=== PATIENT | male | born 1960 | race Caucasian/White ===

== ENCOUNTER 2019-03-29 09:55 | Outpatient (RCR) | payer OTHER, SELFPAY ==
--- NOTE | 2019-03-29 10:39 | PTOPEVAL ---
Thank you for referring this patient to [facility]. Please review, sign, date and return this plan of care SHAYAN. I agree with and certify that the following plan of care is medically necessary. Referring Physician Date Admitting Provider: Attending Provider: Ramon Duarte, Referring Provider: *PT Outpatient Evaluation Start: 03/29/19 10:15 Freq: Status: Active Protocol: Document 03/29/19 10:15 [facility] (Rec: 03/29/19 10:38 [facility] [id number]) Therapy Assessment Status Assessment Status Assessment Status Evaluation Evaluation Information Problem Diagnosis L hip, ischial bursitis Onset 03/25/19 Subjective Information patient reports he has been Query Text:As Reported By Patient/ having pain in the L hip for Family about 3-4 weeks. he reports the pain will reach an 8/10 at times. he reports sitting for increased time causes increased symptoms. he reports the pain is located underneath his L buttock related to where his wallet sits. he reports it feels like a pressure. he reports he does not work. he reports some symptoms down the leg at time . he report this will redaiate to the L knee only. Prior Level of Function Comments Additional Prior Level of Function priro to a month ago, no Comments issues with the L LE or buttock/hip. Pain Assessment Timing of Pain Assessment Timing of Pain Assessment Assessment Pain Scale Pain Scale Used Numeric (1 - 10) Self Report Pain Assessment Left Buttock(s) Reported Pain Level 5 Pain Description Burning,Pressure,Tightness Pain Frequency Acute,Continuous Current Pain Intensity 5 Lowest Pain Intensity 2 Greatest Pain Intensity 8 Pain Level Goal 0 Pain Aggravating Factors Prolonged Position,Sitting Pain Score Pain Score 5: Self Report Cervical and Lumbar ROM Lumbar ROM Lumbar Flexion Active Mid [place] Query Text:Hands to: Lumbar Extension (0-40) 30 Query Text:Active in Degrees Lumbar Lateral Flexion Right (0-40) 30 Query Text:Active in Degrees Lumbar Lateral Flexion Left (0-40) 30 Query Text:Active in Degrees Cervical and Lumbar Muscle Testing Lumbar Strength Upper Abdominal Strength 2+Poor+ Lower Abdomina
--- NOTE | 2019-04-09 16:04 | PCPTNOTE ---
04/09/19-pt cancelled apt this date.-HM
== END 2019-04-05 17:00 | disposition home or self-care (01) ==
LOC: CHSPT 09:55
PROVIDERS: PCP Family Medicine; Visit Provider Family Medicine
DX: M70.72 Other bursitis of hip, left hip (principal)
CPT/HCPCS: 97014; 97110; 97161; G0283

== ENCOUNTER 2020-05-25 17:29 | Emergency (ER) | payer OTHER, SELFPAY ==
--- NOTE | ~2020-05-25 | XR_ITS ---
EXAMINATION: XR forearm RT 2V INDICATION: Right forearm pain TECHNIQUE: Two views of the right forearm are obtained. COMPARISON: None available FINDINGS: There is cortical irregularity in the shafts of the proximal radius and ulna. A scalloped l ucency is present in the proximal radial shaft with a sclerotic margin. There appears to be overlying heterotopic bone formation. Mildly elevated cortex is seen in the adjacent ulnar shaft. No fracture is identified. There is no joint effusion. Alignment at the elbow and wrist is normal. IMPRESSION: 1. Cortical irregularity in the shafts of the proximal radius and ulna. Recommend correlation for any surgery at this site. If absent, further evaluation with CT may be beneficial to evaluate for underl gregoria osseous lesion. Reviewed, dictated and finalized at location A. IMPRESSION: 1. Cortical irregularity in the shafts of the proximal radius and ulna. Recomme nd correlation for any surgery at this site. If absent, further evaluation with CT may be beneficial to evaluate for underlying osseous lesion.
[2020-05-25 17:49] VITALS: BP 128/82; PULSE 75; RESP 20; TEMP 36.2; O2SAT 100
[2020-05-25] MEDS: KETOROLAC (*BKC) 60 MG/2 ML VIAL IM (18:00)
--- NOTE | 2020-05-25 18:16 | ED.UPPEXIN ---
HPI - Extremity Injury (Upper) General Chief Complaint: Extremity Injury, Upper Stated Complaint: right arm pain Source: patient Mode of arrival: ambulatory Limitations: no limitations History of Present Illness HPI narrative: this is 59-year-old gentleman that presents with some right forearm pain mid forearm with no known injury there is no bruising no swelling has pain and tenderness with some pronation and supination of his right forearm has a good strong radial pulse on the on the right has a history of a tendon surgery on the elbow otherwise known injuries has good range of motion although tender and painful. Rates his pain about a 9/10 has taken [id number] medication with minimal relief. complaint: injury to: right Other Extremity Injury: Right: shoulder ( pain without injury) Handedness: right Severity: severe Severity scale (1-10): 9 Relieving factors: immobilization Exacerbating factors: movement of extremity Related Data Allergies Allergy/AdvReac Type Severity Reaction Status Date / Time No Known Allergies Allergy Mild Verified 04/22/19 09:45 Review of Systems Review of Systems: All systems reviewed & are unremarkable except as noted in HPI and below PMFSH Past Medical History Medical History Tendinopathy of right elbow Family History Family History Father Hypertension Family history of elevated blood lipids Family history of diabetes mellitus in first degree relative Family history of lung cancer Family history of malignant neoplasm of kidney Grandparent Family history of throat cancer Other Diabetes mellitus Social History Social History Alcohol intake: never Gender identity (if verbalized by the patient): Male Exam Const: General: no acute distress Orientation/consciousness: patient oriented x3 HENMT: Head: normal to inspection and contusion Eyes: Conjunctivae: conjunctivae normal Pupils: Equal, round and reactive pupils present EOM: EOMs intact bilaterally Direct Ophthalmoscopy: no photophobia Neck: Neck: normal visual inspection, no lymphadenopathy and no meningeal signs Chest: Chest palpation & inspection: normal inspection of the chest Resp: Effort & Inspection: normal respiratory effort Auscultation: clear to auscultation bilaterally Cardio: Rate: regular rate Rhythm: regular rhythm GI: GI Palp: Yes Soft to palpation Percussion: Yes normal to percussion Back/Spine/Pelvis: Back: no CVA tenderness Skin: General skin exam: normal color Rashes: no rashes Neuro: General: patient oriented x3 and moves all extremities Extrem: Other: tender right mid forearm with palpation and movement with no bruising or swelling Psych: Appearance: grossly normal Mental Status: mental status grossly normal Affect: normal affect Thought content: Yes Normal thought content present Course Course Emergency Course: reviewed x-ray findings with patient patient has had a history of surgery on his right elbow and and forearm with correlates with the x-ray findings, advised patient to take medicine as prescribed as improved with some Toradol and follow-up with primary care physician. Vital Signs Vital signs: Vital Signs Temperature 36.2 C L 05/25/20 17:49 Pulse Rate 75 05/25/20 17:49 Respiratory Rate 20 05/25/20 17:49 Blood Pressure 128/82 05/25/20 17:49 Pulse Oximetry 100 05/25/20 17:49 Temperature 36.2 C L 05/25/20 17:49 Pulse Rate 75 05/25/20 17:49 Respiratory Rate 20 05/25/20 17:49 Blood Pressure 128/82 05/25/20 17:49 Pulse Oximetry 100 05/25/20 17:49 Critical Care Time Critical Care Time Critical Care Time: No Discharge Plan Discharge Clinical Impression: Forearm deformity Qualifiers: Laterality: right Qualified Code(s): M21.931 - Unspecified acquired deform
[2020-05-25 18:41] VITALS: BP 120/79; PULSE 74; RESP 20; O2SAT 96
== END 2020-05-25 18:43 | disposition home or self-care (01) ==
PROVIDERS: Emergency Provider Emergency Medicine; PCP Family Medicine
DX: M21.931 Unspecified acquired deformity of right forearm (principal)
CPT/HCPCS: 73090; 96372; 99283; J1885

== ENCOUNTER 2020-06-10 07:37 | Outpatient (CLI) | payer OTHER, SELFPAY ==
--- NOTE | ~2020-06-10 | MR_ITS ---
EXAMINATION: MR forearm RT wo con DATE: 06/10/2020 08:32 INDICATION: Right forearm pain. TECHNIQUE: Magnetic resonance imaging (MRI) of the right forearm was performed without intravenous co ntrast. Sequences included coronal, axial, and sagittal PD-weighted FS FSE and coronal, axial, and sa gittal PD-weighted FSE. COMPARISON: Right forearm radiograph 05/25/2020 FINDINGS: Osseous/other: Bone alignment is normal. No fracture. The elbow joint cartilage is normal. Tendons: There is mild common flexor tendinopathy at medial humeral epicondyle. There is severe common extenso r tendinopathy and partial tear at lateral humeral epicondyle. Brachialis tendon is normal. There are surgical changes at the biceps tendon attachment to proximal radius with enthesophytes. There is sev ere tendinopathy and partial tear of biceps tendon at the radial attachment. Ligaments: There are changes of prior sprain of radial collateral ligament characterized by increased signal int ensity with indistinct fibers. Lateral ulnar collateral ligament is likely intact. Ulnar collateral l igament is normal. Cubital tunnel: Ulnar nerve is normal. Fluid: There is no elbow joint effusion. IMPRESSION: 1. Severe tendinopathy and partial tear of biceps tendon at its attachment to proximal radius with reyes rgical changes. 2. Severe common extensor tendinopathy and partial tear at lateral humeral epicondyle. Changes of matt or sprain of radial collateral ligament at the elbow. 3. Mild common flexor tendinopathy at medial humeral epicondyle. Reviewed, dictated and finalized at location A. IMPRESSION: 1. Severe tendinopathy and partial tear of biceps tendon at its attachment to p roximal radius with surgical changes. 2. Severe common extensor tendinopathy and partial tear at lateral humeral epic ondyle. Changes of prior sprain of radial collateral ligament at the elbow. 3. Mild common flexor tendinopathy at medial humeral epicondyle.
== END 2020-06-10 07:38 | disposition home or self-care (01) ==
LOC: CHSIMG 07:39
PROVIDERS: PCP Family Medicine; Visit Provider Nurse Practitioner Psychiatric/Mental Health
DX: M79.631 Pain in right forearm (principal)
CPT/HCPCS: 73218

== ENCOUNTER 2020-10-30 10:39 | Outpatient (CLI) | payer OTHER, SELFPAY ==
[2020-10-30 11:16] LABS: SARS-CoV-2 Ag Negative (Negative)
== END 2020-10-30 10:40 | disposition home or self-care (01) ==
LOC: CHSLAB 10:43
PROVIDERS: PCP Family Medicine; Visit Provider Physician Assistant
DX: J02.9 Acute pharyngitis, unspecified (principal); Z20.822 Contact with and (suspected) exposure to COVID-19
CPT/HCPCS: 87426; C9803

== ENCOUNTER 2020-12-15 10:54 | Outpatient (CLI) | payer OTHER, SELFPAY ==
[2020-12-15 12:06] LABS: SARS-CoV-2 Ag Negative (Negative)
[2020-12-15 12:57] LABS: SARS-CoV-2 RNA PCR Negative (Negative)
== END 2020-12-15 10:55 | disposition home or self-care (01) ==
LOC: CHSLAB 10:57
PROVIDERS: PCP Family Medicine; Visit Provider Family Medicine
DX: Z20.822 Contact with and (suspected) exposure to COVID-19 (principal)
CPT/HCPCS: 87426; C9803; U0003; U0005

== ENCOUNTER 2021-02-06 14:44 | Outpatient (RCR) | payer OTHER, SELFPAY ==
--- NOTE | 2021-02-06 16:00 | PTOPEVAL ---
Thank you for referring Barry Angeles to [facility].? The patient is scheduled to be seen for therapy? ____x/week for ___ weeks. Please review, sign, date and return this plan of care SHAYAN. I agree with and certify that the following plan of care is medically necessary. Referring Physician Date Admitting Provider: Attending Provider: Ramon Duarte, MD Referring Provider: *PT Outpatient Evaluation Start: 02/06/21 15:12 Freq: Status: Active Protocol: Document 02/06/21 15:12 [facility] (Rec: 02/06/21 15:59 [facility] [id number]) Therapy Assessment Status Assessment Status Assessment Status Evaluation Outpatient Past Medical History Cardiovascular History Hx Hypercholesterolemia Yes Hx Hypertension Yes Gastrointestinal History Hx Cholecystectomy Yes Endocrine History Hx Diabetes Yes Evaluation Information Problem Diagnosis lumbar radiculopathy Onset 01/26/21 Additional Evaluation Detail LEFS = 70% functionally declined Subjective Information patient reports he has kimberlyn Query Text:As Reported By Patient/ having increased back and R Family greater than L LE pain. he reports no change in activity. 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 he reports he has increased pain with lifting and carrying activities. he reports he also has increased pain in the back trying to get up and get going after sitting for a long time. he reports he has pain down the backside of the leg and into the calf. Prior Level of Function Comments Additional Prior Level of Function prior to a few weeks ago, no Comments issues with the lower back of LE's. he reports occasional soreness in the back but nothing like it has been lately. Pain Assessment Timing of Pain Assessment Timing of Pain Assessment Assessment Pain Scale Pain Scale Used Numeric (1 - 10) Self Report Pain Assessment Lower Back Reported Pain Level 9 Greatest Pain Intensity 10 Pain Score Pain Score 9: Self Report Interventions Used Interventions Used By Clinicians Activity or ADL's,Heat,Rest Cervical and Lumbar ROM Lumbar RO
--- NOTE | 2021-02-15 15:02 | PTOPEVAL ---
Thank you for referring Barry Angeles to [facility].? The patient is scheduled to be seen for therapy? ____x/week for ___ weeks. Please review, sign, date and return this plan of care SHAYAN. I agree with and certify that the following plan of care is medically necessary. Referring Physician Date Admitting Provider: Attending Provider: Ramon Duarte, MD Referring Provider: *PT Outpatient Evaluation Start: 02/06/21 15:12 Freq: Status: Active Protocol: Document 02/06/21 15:12 [facility] (Rec: 02/06/21 15:59 [facility] [id number]) Therapy Assessment Status Assessment Status Assessment Status Evaluation Outpatient Past Medical History Cardiovascular History Hx Hypercholesterolemia Yes Hx Hypertension Yes Gastrointestinal History Hx Cholecystectomy Yes Endocrine History Hx Diabetes Yes Evaluation Information Problem Diagnosis lumbar radiculopathy Onset 01/26/21 Additional Evaluation Detail LEFS = 70% functionally declined Subjective Information patient reports he has kimberlyn Query Text:As Reported By Patient/ having increased back and R Family greater than L LE pain. he reports no change in activity. 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 he reports he has increased pain with lifting and carrying activities. he reports he also has increased pain in the back trying to get up and get going after sitting for a long time. he reports he has pain down the backside of the leg and into the calf. Prior Level of Function Comments Additional Prior Level of Function prior to a few weeks ago, no Comments issues with the lower back of LE's. he reports occasional soreness in the back but nothing like it has been lately. Pain Assessment Timing of Pain Assessment Timing of Pain Assessment Assessment Pain Scale Pain Scale Used Numeric (1 - 10) Self Report Pain Assessment Lower Back Reported Pain Level 9 Greatest Pain Intensity 10 Pain Score Pain Score 9: Self Report Interventions Used Interventions Used By Clinicians Activity or ADL's,Heat,Rest Cervical and Lumbar ROM Lumbar RO
== END 2021-03-12 23:59 | disposition home or self-care (01) ==
LOC: CHSPT 14:44
PROVIDERS: PCP Family Medicine; Visit Provider Family Medicine
DX: M54.10 Radiculopathy, site unspecified (principal)
CPT/HCPCS: 97014; 97110; 97161; G0283

== ENCOUNTER 2021-03-12 13:01 | Outpatient (CLI) | payer OTHER, SELFPAY ==
--- NOTE | ~2021-03-12 | XR_ITS ---
XR lumbar spine 2-3V DATE: 03/12/2021 13:22 INDICATION: Bilateral radicular pain involving lower extremities TECHNIQUE: AP, lateral, coned lateral lumbosacral views of the lumbar spine COMPARISON: None FINDINGS: There is minimal levoscoliosis of the thoracolumbar spine. There is mild degenerative spurring of the lumbar spine. There is mild loss of interspace height at L3-4. Lumbar and lumbosacral interspaces otherwise are rel atively preserved. No fracture, bone destruction or spondylolisthesis. The lumbar and included T11 and T12 pedicles are intact. The sacroiliac joints are normal. IMPRESSION: Minimal levoscoliosis and mild degenerative change Reviewed, dictated and finalized at location A. FOREMAN
== END 2021-03-12 13:02 | disposition home or self-care (01) ==
LOC: CHSIMG 13:03
PROVIDERS: PCP Family Medicine; Visit Provider Family Medicine
DX: M54.10 Radiculopathy, site unspecified (principal)
CPT/HCPCS: 72100

== ENCOUNTER 2021-10-10 05:13 | Emergency (ER) | payer OTHER, SELFPAY ==
--- NOTE | ~2021-10-10 | XR_ITS ---
EXAMINATION: XR hip LT min 2V DATE: 10/10/2021 06:13 INDICATION: Left hip pain. TECHNIQUE: 2 views of left hip were obtained. COMPARISON: None. FINDINGS: Bone alignment is normal. No fracture. There is mild left hip osteoarthritis characterized by tiny osteophytes. No joint space narrowing. IMPRESSION: 1. Mild left hip osteoarthritis. Reviewed, dictated and finalized at location A.
--- NOTE | ~2021-10-10 | CT_ITS ---
EXAMINATION: CT lumbar spine wo con DATE: 10/10/2021 06:14 INDICATION: Chronic back pain. TECHNIQUE: Computed tomography (CT) of the lumbar spine was performed without intravenous contrast. A utomated exposure control and iterative reconstruction technique were employed. The dose-length produ ct was 1151.55 mGy-cm. COMPARISON: Lumbar spine radiographs 03/12/2021 FINDINGS: There is a 2 mm stone in left kidney. There is 3 degrees levocurvature of lumbar spine. Nelly tebral body heights are normal. There is mildly decreased disc height at L3-L4 and L4-L5. The followi ng disc levels are specifically discussed: L1-L2: The disc does not extend beyond the endplate margin. There is moderate bilateral facet joint o steoarthritis. There is no neural foraminal stenosis. There is no central canal stenosis. L2-L3: The disc is mildly bulging. There is mild bilateral facet joint osteoarthritis. There is mild bilateral neural foraminal stenosis. There is mild central canal stenosis. L3-L4: The disc is bulging. There is mild bilateral facet joint osteoarthritis. There is moderate cirilo ateral neural foraminal stenosis. There is mild central canal stenosis. L4-L5: The disc is bulging. There is mild bilateral facet joint osteoarthritis. There is moderate cirilo ateral neural foraminal stenosis. There is moderate central canal stenosis. L5-S1: The disc is bulging. There is severe bilateral facet joint osteoarthritis. There is mild bilat eral neural foraminal stenosis. There is mild central canal stenosis. IMPRESSION: 1. Moderate lumbar spondylosis. Reviewed, dictated and finalized at location A.
--- NOTE | ~2021-10-10 | XR_ITS ---
EXAMINATION: XR chest 1V portable DATE: 10/10/2021 06:13 INDICATION: Anterior chest pain. TECHNIQUE: A single frontal view of the chest was obtained. COMPARISON: Chest single view 12/13/2015, chest CT 05/27/2012 FINDINGS: There is mild atelectasis in left lower lung zone. No pleural effusion or pneumothorax. The heart size is normal. IMPRESSION: 1. Mild atelectasis in left lower lung zone. Reviewed, dictated and finalized at location A.
[2021-10-10 05:21] VITALS: BP 154/80; PULSE 72; PULSE 78; RESP 16; TEMP 36.4; O2SAT 97
--- NOTE | 2021-10-10 05:25 | ED.BACK ---
HPI - Back Pain/Injury General Chief Complaint: Back Pain/Injury Stated Complaint: pain Source: patient History of Present Illness HPI Narrative: 61-year-old male with a history of hypertension, dyslipidemia, diabetes mellitus,gout, spinal stenosis status post epidural injections, presents to the ER with -- worsening of his low back pain. The pain radiates down his legs but is worse on the left side. No bladder or bowel involvement. No motor or sensory deficits. No fever noted. he was followed by pain specialist at [place] and received epidural injection in August of this year. He takes gabapentin, diclofenac, allopurinol and p.r.n. tramadol -- substernal chest discomfort which started after he presented to the ER. No radiation of the pain. No nausea/ vomiting. No shortness of breath or lightheadedness. MD elicited complaint: back pain Pertinent past history: prior back pain Onset (ago): month(s) Timing: constant Severity: severe Similar Symptoms Previously: Yes Quality: aching Location: lumbar spine Radiation: left upper leg, right upper leg and left leg below the knee Exacerbating factors: movement Relieving factors: immobilization Context: unknown Associated symptoms: difficulty walking Treatments prior to arrival: NSAIDS Related Data Home Medications Medication Instructions Recorded Confirmed allopurinol 300 mg tablet 300 mg PO DAILY 10/10/21 10/10/21 amlodipine 5 mg tablet 5 mg PO DAILY 10/10/21 10/10/21 aripiprazole 10 mg tablet 10 mg PO DAILY 10/10/21 10/10/21 aspirin 81 mg tablet 81 mg PO DAILY 10/10/21 10/10/21 atorvastatin 20 mg tablet 20 mg PO DAILY 10/10/21 10/10/21 bupropion HCl 150 mg tablet,12 hr 150 mg PO BID 10/10/21 10/10/21 sustained-release carvedilol 12.5 mg tablet 12.5 mg PO BID 10/10/21 10/10/21 diclofenac sodium 50 mg 50 mg PO TID 10/10/21 10/10/21 tablet,delayed release enalapril maleate 20 mg tablet 20 mg PO DAILY 10/10/21 10/10/21 esomeprazole magnesium 20 mg 20 mg PO DAILY 10/10/21 10/10/21 capsule,delayed release famotidine 20 mg tablet (Acid 20 mg PO DAILY 08/24/22 08/24/22 Dx Board Operator (famotidine)) gabapentin 300 mg capsule 300 mg PO BID 10/10/21 10/10/21 glimepiride 2 mg tablet 2 mg PO BID 10/10/21 10/10/21 metformin 500 mg tablet,extended 1,000 mg PO BID 10/10/21 10/10/21 release 24 hr multivitamin with minerals-folic 1 tablet PO DAILY 10/10/21 10/10/21 acid 0.4 mg tablet Allergies Allergy/AdvReac Type Severity Reaction Status Date / Time carbamazepine AdvReac Dyspnea / Verified 10/10/21 05:25 SOB isosorbide [From Isordil] AdvReac Dizziness Verified 10/10/21 05:25 morphine AdvReac Numbness Verified 10/10/21 05:25 Review of Systems Review of Systems: All systems reviewed & are unremarkable except as noted in HPI and below Constitutional: Constitutional: Reports as per HPI and Reports no additional constitutional complaints Eyes: Eyes: Reports as per HPI and Reports no additional eye complaints ENT: Reports system reviewed and no additional complaints, except as documented and Reports as per HPI Cardiovascular: Cardiovascular: Reports as per HPI, Reports no additional cardiovascular complaints and Reports chest pain Respiratory: Respiratory: Reports as per HPI and Reports no additional respiratory complaints Gastrointestinal: Gastrointestinal: Reports as per HPI, Reports no additional gastrointestinal complaints and Reports heartburn Genitourinary: Genitourinary: Reports no additional male genitourinary complaints and Reports as per HPI Musculoskeletal: Musculoskeletal: Reports no additional musculoskeletal complaints, Reports as per HPI and Reports back pain Integumentary/Breasts: Skin/Breast: Reports system reviewed and no additional complaints, except as docu and Reports as per HPI Neurologic: Reports system reviewed and no additional complaints, except as documented and Reports as per HPI Psychiatric: Psychiatric: Reports no additional psychi
--- NOTE | 2021-10-10 05:40 | ECG_ITS ---
Measurements Intervals [place] Rate: 75 P: 15 CO: 184 QRS: 14 QRSD: 107 T: 15 QT: 388 QTc: 436 Interpretive Statements SINUS RHYTHM WITH OCCASIONAL PREMATURE VENTRICULAR CONTRACTIONS BASELINE ARTIFACT BORDERLINE ECG NO PREVIOUS ECG AVAILABLE FOR COMPARISON Electronically Signed On 10-10-2021 15:57:32 CDT by Sukumar Keith M.D.
[2021-10-10] MEDS: ASPIRIN 81 MG CHEWABLE TABLET 324 MG PO (05:47)
[2021-10-10 05:52] LABS: Basophils Absolute Auto 0.03 K/mm3 (0.00-0.10); Basophils Percent Auto 0.5 % (0.0-1.0); Hematocrit 32.9 % (40.0-54.0); Hemoglobin 11.3 g/dL (14.0-18.0); Immature Granulocyte Absolute 0.06 K/mm3 (0.00-0.00); Lymphocytes Absolute Auto 1.04 K/mm3 (1.10-4.50); Lymphocytes Percent Auto 17.5 % (18.0-42.0); Mean Corpuscular HGB Conc 34.3 g/dL (32.0-36.0); Mean Corpuscular Hemoglobin 28.9 pg (27.0-31.0); Mean Corpuscular Volume 84.1 fL (78.0-102.0); Monocytes Absolute Auto 0.33 K/mm3 (0.10-0.90); Monocytes Percent Auto 5.6 % (2.0-11.0); Neutrophils Absolute Auto 4.5 K/mm3 (1.7-7.2); Neutrophils Percent Auto 75.4 % (50.0-70.0); Platelet Count Result 106 K/mm3 (150-420); Red Blood Count 3.91 M/mm3 (4.70-6.10); Red Cell Distribution Width 15.2 % (11.6-14.4); White Blood Count 5.9 K/mm3 (4.8-10.8)
[2021-10-10] MEDS: traMADol HCL (*CRX) 50 MG TABLET PO (06:17)
[2021-10-10 06:21] LABS: Alanine Aminotransferase 30 U/L (16-63); Albumin Level 3.8 g/dL (3.4-5.0); Alkaline Phosphatase 124 U/L (46-116); Anion Gap 9 mmol/L (8-16); Aspartate Amino Transferase 14 U/L (15-37); Bilirubin,Total 0.4 mg/dL (0.00-1.00); Blood Urea Nitrogen 15 mg/dL (7-18); Calcium 8.6 mg/dL (8.5-10.1); Carbon Dioxide 25 mmol/L (21-32); Chloride 101 mmol/L (98-108); Estimated CRCL calculation 83 ml/min; Estimated Glomerular Filt Rate > 60; Glucose 252 mg/dL (70-99); Osmolality Calculated 289 mOsm/kg (285-295); Sodium 135 mmol/L (136-145); Total Protein 6.3 g/dL (6.4-8.2); Troponin I 4.9 ng/L (0.00-60.4); Uric Acid 4.9 mg/dL (3.5-7.2)
[2021-10-10 06:32] VITALS: BP 140/70; PULSE 70; RESP 16; O2SAT 97
== END 2021-10-10 07:10 | disposition home or self-care (01) ==
PROVIDERS: Emergency Provider Internal Medicine Critical Care Medicine; PCP Family Medicine
DX: M47.816 Spondylosis without myelopathy or radiculopathy, lumbar region (principal); M16.12 Unilateral primary osteoarthritis, left hip; R07.89 Other chest pain; E11.65 Type 2 diabetes mellitus with hyperglycemia
CPT/HCPCS: 36415; 71045; 72131; 73502; 80053; 84484; 84550; 85025; 93005; 99284; A9270

== ENCOUNTER 2021-11-10 14:49 | Emergency (ER) | payer OTHER, SELFPAY ==
[2021-11-10 14:50] VITALS: BP 156/89; PULSE 84; RESP 16; TEMP 36.4; O2SAT 98
--- NOTE | 2021-11-10 15:09 | ED.BACK ---
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 Currently is had a flare of his lower back with some pain that he rates about a 6/10 with some radiation to his lower legs mainly his left leg, improved with some with walking and with bending over while using a walker, there is no saddle paresthesias no urinary incontinence no bowel incontinence there is no fever chills. MD elicited complaint: back pain Pertinent past history: prior back pain Onset (ago): hour(s) Timing: constant Severity: moderate Pain scale (0-10): 6 Quality: aching Location: lumbar spine Radiation: none Exacerbating factors: none, movement and supine positioning Relieving factors: immobilization Related Data Home Medications Medication Instructions Recorded Confirmed amlodipine 5 mg tablet 5 mg PO DAILY 10/10/21 11/10/21 aripiprazole 10 mg tablet 10 mg PO DAILY 10/10/21 11/10/21 aspirin 81 mg tablet 81 mg PO DAILY 10/10/21 11/10/21 atorvastatin 20 mg tablet 20 mg PO DAILY 10/10/21 11/10/21 bupropion HCl 150 mg tablet,12 hr 150 mg PO BID 10/10/21 11/10/21 sustained-release carvedilol 12.5 mg tablet 12.5 mg PO BID 10/10/21 11/10/21 diclofenac sodium 50 mg 50 mg PO TID 10/10/21 11/10/21 tablet,delayed release enalapril maleate 20 mg tablet 20 mg PO DAILY 10/10/21 11/10/21 esomeprazole magnesium 20 mg 20 mg PO DAILY 10/10/21 11/10/21 capsule,delayed release famotidine 20 mg tablet (Acid 20 mg PO DAILY 10/10/21 11/10/21 Rehabilitation Attendant (famotidine)) gabapentin 300 mg capsule 300 mg PO BID 10/10/21 11/10/21 glimepiride 2 mg tablet 2 mg PO DAILY 10/10/21 11/10/21 metformin 500 mg tablet,extended 1,000 mg PO BID 10/10/21 11/10/21 release 24 hr multivitamin with minerals-folic 1 tablet PO DAILY 10/10/21 11/10/21 acid 0.4 mg tablet Allergies Allergy/AdvReac Type Severity Reaction Status Date / Time carbamazepine AdvReac Dyspnea / Verified 11/10/21 15:03 SOB isosorbide [From Isordil] AdvReac Dizziness Verified 11/10/21 15:03 morphine AdvReac Numbness Verified 11/10/21 15:03 Review of Systems Review of Systems: All systems reviewed & are unremarkable except as noted in HPI and below PMFSH Past Medical History Medical History Dyslipidemia GERD (gastroesophageal reflux disease) Gout Hypertension Spinal stenosis Tendinopathy of right elbow Family History Family History Father Hypertension Family history of elevated blood lipids Family history of diabetes mellitus in first degree relative Family history of lung cancer Family history of malignant neoplasm of kidney Grandparent Family history of throat cancer Other Diabetes mellitus Social History Social History Alcohol intake: never Gender identity (if verbalized by the patient): Male Exam Eyes: Conjunctivae: conjunctivae normal Neck: Neck: normal visual inspection, no lymphadenopathy and no meningeal signs Chest: Chest palpation & inspection: normal inspection of the chest Resp: Effort & Inspection: normal respiratory effort Auscultation: clear to auscultation bilaterally Cardio: Rate: regular rate Rhythm: regular rhythm GI: Auscultation: normal bowel sounds : General: Yes bladder normal to palpation Back/Spine/Pelvis: Back: no CVA tenderness Skin: General skin exam: normal color Rashes: no rashes Wounds: no wounds Neuro: General: patient oriented x3, moves all extremities, no meningeal signs and no focal ct
[2021-11-10] MEDS: methylPREDNISolone ACETATE 40 MG/ML VIAL 80 MG IM (15:29)
[2021-11-10 15:50] VITALS: BP 145/75; PULSE 86; RESP 16; TEMP 36.4; O2SAT 97
== END 2021-11-10 15:52 | disposition home or self-care (01) ==
PROVIDERS: Emergency Provider Emergency Medicine; PCP Family Medicine
DX: M54.30 Sciatica, unspecified side (principal); S39.012A Strain of muscle, fascia and tendon of lower back, initial encounter
CPT/HCPCS: 96372; 99283; J1030

== ENCOUNTER 2022-06-11 18:26 | Emergency (ER) | payer OTHER, SELFPAY ==
--- NOTE | ~2022-06-11 | XR_ITS ---
EXAM: XR tibia fibula RT 2V DATE: 06/11/2022 18:54 HISTORY: S/P FALL X5 DAYS AGO; ANTERIOR R MID LEG WOUND/HEMATOMA. . COMPARISON: None available. FINDINGS: Normal mineralization. No fracture or dislocation. No lytic or blastic lesion. Joint space s are maintained. No erosion or periosteal change. Soft tissues within normal limits. IMPRESSION: No acute osseous finding in the right tibia/fibula. Reviewed, dictated and finalized at location [facility].
[2022-06-11 18:26] VITALS: BP 153/87; PULSE 77; RESP 18; TEMP 35.8; O2SAT 98
--- NOTE | 2022-06-11 18:33 | ED.LOWEXIN ---
HPI - Extremity Injury (Lower) General Chief Complaint: Extremity Injury, Lower Stated Complaint: fall/ right leg pain and swelling Time Seen by Provider: 06/11/22 18:33 Source: patient and RN notes reviewed Mode of arrival: ambulatory Limitations: no limitations History of Present Illness HPI Narrative: patient states that he fell onto a concrete cinder block 5 days ago. He stumbled and hit his right anterior lai. Since then it has become a little bit tight around the middle of his leg. He says it hurts when he walks on it. He says it just does not seem to want to heal or get better. He denies any fever chills. He denies any chest pain, shortness of breath, dyspnea on exertion. MD complaint: leg injury (right) Onset (ago): week(s) Type of Injury: blunt Place: home Severity: moderate Relieving factors: nothing Exacerbating factors: weight bearing and palpation Context: direct blow Associated symptoms: swelling and ambulatory Other symptoms: none Related Data Home Medications Medication Instructions Recorded Confirmed amlodipine 5 mg tablet 5 mg PO DAILY 10/10/21 06/11/22 aripiprazole 10 mg tablet 10 mg PO DAILY 10/10/21 06/11/22 aspirin 81 mg tablet 81 mg PO DAILY 10/10/21 06/11/22 atorvastatin 20 mg tablet 20 mg PO DAILY 10/10/21 06/11/22 bupropion HCl 150 mg tablet,12 hr 150 mg PO BID 10/10/21 06/11/22 sustained-release carvedilol 12.5 mg tablet 25 mg PO BID 10/10/21 06/11/22 enalapril maleate 20 mg tablet 20 mg PO DAILY 10/10/21 06/11/22 esomeprazole magnesium 20 mg 20 mg PO DAILY 10/10/21 06/11/22 capsule,delayed release gabapentin 300 mg capsule 300 mg PO BID 10/10/21 06/11/22 glimepiride 2 mg tablet 2 mg PO DAILY 10/10/21 06/11/22 metformin 500 mg tablet,extended 1,000 mg PO BID 10/10/21 06/11/22 release 24 hr multivitamin with minerals-folic 1 tablet PO DAILY 10/10/21 06/11/22 acid 0.4 mg tablet allopurinol 300 mg tablet 300 mg PO DAILY 06/11/22 06/11/22 Allergies Allergy/AdvReac Type Severity Reaction Status Date / Time carbamazepine AdvReac Dyspnea / Verified 06/11/22 18:32 SOB isosorbide [From Isordil] AdvReac Dizziness Verified 06/11/22 18:32 morphine AdvReac Numbness Verified 06/11/22 18:32 Review of Systems Review of Systems: All systems reviewed & are unremarkable except as noted in HPI and below PMFSH Past Medical History Medical History Dyslipidemia GERD (gastroesophageal reflux disease) Gout Hypertension Spinal stenosis Tendinopathy of right elbow Family History Family History Father Hypertension Family history of elevated blood lipids Family history of diabetes mellitus in first degree relative Family history of lung cancer Family history of malignant neoplasm of kidney Grandparent Family history of throat cancer Other Diabetes mellitus Social History Social History Alcohol intake: never Gender identity (if verbalized by the patient): Male Exam Const: General: healthy appearing, no acute distress and alert Nutritional Appearance: well nourished and obese centrally obese Orientation/consciousness: patient oriented x3 Limitations: no limitations HENMT: Head: normal to inspection Ears: external ears normal Face/Nose/Sinus: Normal external nose present Face and sinus: normal facial exam Mouth: Yes moist mucous membranes Eyes: Conjunctivae: conjunctivae normal Pupils: Equal, round and reactive pupils present EOM: EOMs intact bilaterally Neck: Neck: normal visual inspection Resp: Effort & Inspection: normal respiratory effort Auscultation: clear to auscultation bilaterally Cardio: Rate: regular rate Rhythm: regular rhythm GI: GI Palp: Yes Soft to palpation and No Tenderness to palpation present (GI) Auscultation: normal bowel sounds Back/Spine/Pelvis: Cervical Spine: cervical
[2022-06-11 18:39] VITALS: BP 153/87; PULSE 77; RESP 18; TEMP 35.8; O2SAT 98
[2022-06-11 18:58] LABS: Anion Gap 8 mmol/L (8-16); Blood Urea Nitrogen 11 mg/dL (7-18); Calcium 8.4 mg/dL (8.5-10.1); Carbon Dioxide 27 mmol/L (21-32); Chloride 105 mmol/L (98-108); Estimated CRCL calculation 75 ml/min; Estimated Glomerular Filt Rate > 60; Glucose 255 mg/dL (70-99); Osmolality Calculated 298 mOsm/kg (285-295); Potassium 4.3 mmol/L (3.5-5.1); Sodium 140 mmol/L (136-145)
[2022-06-11 19:00] LABS: D Dimer 0.19 mg/L (0.19-0.50)
[2022-06-11 19:15] VITALS: BP 135/67; PULSE 84; RESP 18; O2SAT 96
== END 2022-06-11 19:21 | disposition home or self-care (01) ==
PROVIDERS: Emergency Provider Emergency Medicine; PCP Family Medicine
DX: S80.11XA Contusion of right lower leg, initial encounter (principal); I10 Essential (primary) hypertension; E78.5 Hyperlipidemia, unspecified; Z79.84 Long term (current) use of oral hypoglycemic drugs; Z79.82 Long term (current) use of aspirin; W18.39XA Other fall on same level, initial encounter
CPT/HCPCS: 36415; 73590; 80048; 85380; 99283

== ENCOUNTER 2023-08-05 14:44 | Outpatient (RCR) | payer OTHER, SELFPAY ==
--- NOTE | 2023-08-05 15:45 | OPREHPOC ---
Outpatient Therapy Plan of Care This is a Multidisciplinary Plan of Care that may contain components documented by all disciplines (PT, OT, and ST.) PT Problem 1 PT Problem #1 Knowledge Deficit PT Goal 1 Goal The patient will be independent in a home exercise program. Target Visit 4 PT Problem 2 PT Problem #2 Pain PT Goal 1 Goal The patient will report no greater than 3/10 low back pain with walking his dog and lifting household items. Target Visit 12 PT Problem 3 PT Problem #3 Impaired Range of Motion PT Goal 1 Goal The patient will improve lumbar flexion AROM to 40 degrees to improve ability to dress the LE. Target Visit 12 PT Problem 4 PT Problem #4 Impaired Functional Mobil PT Goal 1 Goal 1. The patient will demonstrate 30% or less self perceived disability per the Back Index questionnaires. 2. The patient will demonstrate the ability to lift 10# from floor to waist with proper body mechanics in order to return lifting household items. 3. The patient will demonstrate the ability to ambulate 1,000 feet during the 6 minute walk test without rest breaks to improve his ability to walk his dog. Target Visit 12
--- NOTE | 2023-08-05 15:45 | PTOPEVAL1 ---
Assessment and note entered by Kelly Madrigal PT Evaluation Information Assessment Status Evaluation Diagnosis LBP, Lumbar stenosis Onset 07/30/23 Subjective Information Barry Angeles reports he has been having lower back pain in the center for several years. He notes pain worsened about a month ago for unknown reasons. He notes he is limited with walking to less than 1/4 mile and sitting or standing for an hour or less. He is also unable to lift very much weight. He also notes numbness and pain down the back of the leg to the knee that occurs on both side. He went to the doctor and was referred to PT and will eventually be referred to a spine surgeon if PT does not help his pain. Recent x- rays showed spinal stenosis per the patient report . He did have an injection in the lower back about 2 years ago that did not help his pain. Reported Pain Level Pain Score 7: Self Report Assessment PT Clinical Summary Barry Angeles presents with chronic low back pain with a recent exacerbation about one month ago for unknown reasons. He went to his orthopedic surgeon who referred him to PT and told him he may need a surgery. He is reporting difficulty with standing or sitting more than an hour, walking more than a 1/4 mile, and lifting household items. He objectively demonstrates decreased and painful lumbar AROM, decreased core and hip strength, decreased hamstring flexibility, and positive special tests for lumbar nerve root irritation. He will benefit from skilled PT to address these limitations. Plan of Care Interventions Electrical Stimulation,Hot Pack/Cold Pack,Manual Therapy,Mechanical Traction,Neuro Re-education, Patient/Caregiver Educati,Therapeutic Activities, Therapeutic Exercise PT Services Indicated Yes Treatment Frequency and 2 times a week for 12 visits Duration These treatments will address the objective and functional deficits as defined above. The patient will be advanced safely and appropriately in order for the patient to progress towards his/her prior level of function. Additional exercises will be introduced and as well as a comprehensive home exercise program upon discharge, if needed, ?to ensure carryover of functional gains achieved in the clinic. This treatment plan has been reviewed and agreement upon by the patient.
--- NOTE | 2023-09-03 13:59 | OPREHPOC ---
Outpatient Therapy Plan of Care This is a Multidisciplinary Plan of Care that may contain components documented by all disciplines (PT, OT, and ST.) PT Problem 1 PT Problem #1 Knowledge Deficit PT Goal 1 Goal The patient will be independent in a home exercise program. Target Visit 4 Progress Met PT Problem 2 PT Problem #2 Pain PT Goal 1 Goal The patient will report no greater than 3/10 low back pain with walking his dog and lifting household items. Target Visit 12 Progress Not Met PT Problem 3 PT Problem #3 Impaired Range of Motion PT Goal 1 Goal The patient will improve lumbar flexion AROM to 40 degrees to improve ability to dress the LE. Target Visit 12 Progress Not Met PT Problem 4 PT Problem #4 Impaired Functional Mobil PT Goal 1 Goal 1. The patient will demonstrate 30% or less self perceived disability per the Back Index questionnaires. met 2. The patient will demonstrate the ability to lift 10# from floor to waist with proper body mechanics in order to return lifting household items. not met 3. The patient will demonstrate the ability to ambulate 1,000 feet during the 6 minute walk test without rest breaks to improve his ability to walk his dog. met Target Visit 12 Progress Partially Met
--- NOTE | 2023-09-03 13:59 | PTOPPROGNS ---
Assessment and note entered by JT File, PT Evaluation Information Assessment Status Progress Diagnosis LBP, Lumbar stenosis ICD-10 Condition Codes (PT) Pain in low back M54.50 Other ICD-10 Condition Codes ( M48.061 PT) Onset 07/30/23 Subjective Information patient reports he feels Alright today. he continues to report his pain is a 4/10 in the lower back. Assessment PT Clinical Summary mr. aparicio presents to skilled PT services for his 10th skilled therapy visit. thus far, his therapy has consisted of exercises, activities, modalities , and manual therapy for pain reduction, increased rom, and increased strength. he presents today with improvement in lumbar flexion active rom, gait speed/endurance, and reports significant improvement on the oswestry. he has made partial progress of goals for skilled PT, and would benefit from continued skilled PT to achieve the remainder of his goals. Plan of Care Interventions Electrical Stimulation,Hot Pack/Cold Pack,Manual Therapy,Mechanical Traction,Neuro Re-education, Patient/Caregiver Educati,Therapeutic Activities, Therapeutic Exercise PT Services Indicated Yes Treatment Frequency and continue skilled PT per initial POC Duration These treatments will address the objective and functional deficits as defined above. The patient will be advanced safely and appropriately in order for the patient to progress towards his/her prior level of function. Additional exercises will be introduced and as well as a comprehensive home exercise program upon discharge, if needed, ?to ensure carryover of functional gains achieved in the clinic. This treatment plan has been reviewed and agreement upon by the patient.
--- NOTE | 2023-09-10 13:57 | OPREHPOC ---
Outpatient Therapy Plan of Care This is a Multidisciplinary Plan of Care that may contain components documented by all disciplines (PT, OT, and ST.) PT Problem 1 PT Problem #1 Knowledge Deficit PT Goal 1 Goal The patient will be independent in a home exercise program. Target Visit 4 Progress Met PT Problem 2 PT Problem #2 Pain PT Goal 1 Goal The patient will report no greater than 3/10 low back pain with walking his dog and lifting household items. Target Visit 16 Progress Not Met PT Problem 3 PT Problem #3 Impaired Range of Motion PT Goal 1 Goal The patient will improve lumbar flexion AROM to 40 degrees to improve ability to dress the LE. Target Visit 12 Progress Met PT Problem 4 PT Problem #4 Impaired Functional Mobil PT Goal 1 Goal 1. The patient will demonstrate 30% or less self perceived disability per the Back Index questionnaires. met 2. The patient will demonstrate the ability to lift 10# from floor to waist with proper body mechanics in order to return lifting household items. met with cueing 3. The patient will demonstrate the ability to ambulate 1,000 feet during the 6 minute walk test without rest breaks to improve his ability to walk his dog. met Target Visit 12 Progress Met PT Goal 2 Goal 1. 4/5 core strength 2. 4+/5 bilateral hip strength 3. improve bilateral hamstrings mm tightness to less than 30 degrees tightness per the 90/90 test
--- NOTE | 2023-09-10 13:57 | PTOPREEVAL ---
Assessment and note entered by JT File, PT Evaluation Information Assessment Status Re-evaluation Diagnosis LBP, Lumbar stenosis ICD-10 Condition Codes (PT) Pain in low back M54.50 Other ICD-10 Condition Codes ( M48.061 PT) Onset 07/30/23 Subjective Information patient reports he feels Alright today. however, he reports he still has increased pain in the lower back with prolonged standing. he reports he has improved a lot since coming to therapy. Reported Pain Level Pain Score 3: Self Report Assessment PT Clinical Summary mr. aparicio presents to skilled PT services for his 12th skilled PT visit for lower back pain. he presents this date with continued pain at rest, and increased pain with standing. he has met and made progress in functional strength, ambulation endurance, and lifting mechanics. he continues to have deficits in functional activity performance and core strength. continued skilled PT is indicated to improve his objective/functional deficits and and improve his quality of life/ functional activity performance. Plan of Care Interventions Electrical Stimulation,Hot Pack/Cold Pack,Manual Therapy,Mechanical Traction,Neuro Re-education, Patient/Caregiver Educati,Therapeutic Activities, Therapeutic Exercise PT Services Indicated Yes Treatment Frequency and continue skilled PT 1x weekly for 4 more visits Duration These treatments will address the objective and functional deficits as defined above. The patient will be advanced safely and appropriately in order for the patient to progress towards his/her prior level of function. Additional exercises will be introduced and as well as a comprehensive home exercise program upon discharge, if needed, ?to ensure carryover of functional gains achieved in the clinic. This treatment plan has been reviewed and agreement upon by the patient.
--- NOTE | 2023-10-08 14:29 | OPREHPOC ---
Outpatient Therapy Plan of Care This is a Multidisciplinary Plan of Care that may contain components documented by all disciplines (PT, OT, and ST.) PT Problem 1 PT Problem #1 Knowledge Deficit PT Goal 1 Goal / Goal Update The patient will be independent in a home exercise program. Target Visit 4 Progress Met PT Problem 2 PT Problem #2 Pain PT Goal 1 Goal / Goal Update The patient will report no greater than 3/10 low back pain with walking his dog and lifting household items. Target Visit 16 Progress Met PT Problem 3 PT Problem #3 Impaired Range of Motion PT Goal 1 Goal / Goal Update The patient will improve lumbar flexion AROM to 40 degrees to improve ability to dress the LE. Target Visit 12 Progress Met PT Problem 4 PT Problem #4 Impaired Functional Mobil PT Goal 1 Goal / Goal Update 1. The patient will demonstrate 30% or less self perceived disability per the Back Index questionnaires. met 2. The patient will demonstrate the ability to lift 10# from floor to waist with proper body mechanics in order to return lifting household items. met 3. The patient will demonstrate the ability to ambulate 1,000 feet during the 6 minute walk test without rest breaks to improve his ability to walk his dog. met Target Visit 12 Progress Met PT Goal 2 Goal / Goal Update 1. 4/5 core strength met 2. 4+/5 bilateral hip strength met except abduction is 4/5 3. improve bilateral hamstrings mm tightness to less than 30 degrees tightness per the 90/90 test met Progress Partially Met
--- NOTE | 2023-10-08 14:29 | PTOPDC ---
Assessment and note entered by Kelly Madrigal, PT Evaluation Information Assessment Status Discharge Diagnosis LBP, Lumbar Stenosis ICD-10 Condition Codes (PT) Pain in low back M54.50 Other ICD-10 Condition Codes ( M48.061 PT) Onset 07/30/23 Subjective Information Barry Angeles reports overall his low back pain has improved since initiating PT. He is able to walk his dog 2 blocks without pain and he is able to lift items from the floor now without pain. He does still have pain if he stands for more than 15 -20 mins continuously however, the pain disappears when he sits down. He will also have occasional pain when he sleeps wrong. Reported Pain Level Pain Score 1: Self Report Assessment PT Clinical Summary Barry Angeles has completed 16 skilled PT visits for low back pain. He is reporting less pain in back and no pain in his leg since initiating PT. He is able to walk his dog 2 blocks now without pain and can vegetable picker items from the floor without pain. He does still have occasional pain when he stands too long or sleeps in an awkward position. He objectively demonstrates improved lumbar AROM, improved core and hip strength, improved endurance with gait, improved hamstring flexibility, and improved functional abilities. He will be discharged to an independent [facility]. Plan of Care PT Services Indicated No
== END 2023-10-08 14:51 | disposition home or self-care (01) ==
LOC: CHSPT 14:44
DX: M54.50 Low back pain, unspecified (principal); M48.061 Spinal stenosis, lumbar region without neurogenic claudication
CPT/HCPCS: 97014; 97110; 97140; 97161; 97750; G0283

== ENCOUNTER 2024-11-17 14:45 | Outpatient (RCR) | payer OTHER, SELFPAY ==
--- NOTE | 2024-11-15 14:55 | OPREHPOC ---
Outpatient Therapy Plan of Care This is a Multidisciplinary Plan of Care that may contain components documented by all disciplines (PT, OT, and ST.) PT Problem 1 PT Problem #1 Knowledge Deficit PT Goal 1 Goal / Goal Update Independent and compliant with HEP. Target Visit 2 PT Problem 2 PT Problem #2 Impaired Strength PT Goal 1 Goal / Goal Update Pt to improve bilat hip strength to 5/5. Target Visit 8 PT Problem 3 PT Problem #3 Impaired Balance PT Goal 1 Goal / Goal Update Pt to improve TUG to 10 secs or less. Pt to improve 5xSTS to 12 secs or less. Pt to improve [place] to moderate fall risk. Target Visit 8 PT Problem 4 PT Problem #4 Impaired Gait PT Goal 1 Goal / Goal Update Pt to demonstrate improved posture and stride length with ambulation. Pt to report feeling more confident when ambulating around his home. Pt to report no falls in the last 4 weeks. Target Visit 8
--- NOTE | 2024-11-15 14:57 | PTOPEVAL1 ---
Assessment and note entered by Lisette Thurston, PT Evaluation Information Assessment Status Evaluation ICD-10 Condition Codes (PT) Repeated falls R29.6,Difficulty Walking R26.2, Weakness R53.1 Other ICD-10 Condition Codes ( R26.89 PT) Onset 11/10/2024 Subjective Information Pt reports he has been having trouble walking. He' s lost his balance a couple times recently and was able to catch himself, and one fall 3 weeks ago when he was getting out of bed and slipped. He also reports almost falling off the toilet but he was able to catch himself by holding onto the bathtub. He lives with his son who he cares for. He does not use an AD in the home or in the community and has no steps at home. He reports today is a bad day regarding his balance and he usually doesn't leave the house if he's feeling more wobbly. He states his goal for therapy is to be able to stand better and get around better. Reported Pain Level Pain Score 4: Self Report These treatments will address the objective and functional deficits as defined above. The patient will be advanced safely and appropriately in order for the patient to progress towards his/her prior level of function. Additional exercises will be introduced and as well as a comprehensive home exercise program upon discharge, if needed, ?to ensure carryover of functional gains achieved in the clinic. This treatment plan has been reviewed and agreement upon by the patient.
--- NOTE | 2024-11-15 16:02 | PTOPEVAL1 ---
Assessment and note entered by Lisette Thurston, PT Evaluation Information Assessment Status Evaluation ICD-10 Condition Codes (PT) Repeated falls R29.6,Difficulty Walking R26.2, Weakness R53.1 Other ICD-10 Condition Codes ( R26.89 PT) Onset 11/10/2024 Subjective Information Pt reports he has been having trouble walking. He' s lost his balance a couple times recently and was able to catch himself, and one fall 3 weeks ago when he was getting out of bed and slipped. He also reports almost falling off the toilet but he was able to catch himself by holding onto the bathtub. He lives with his son who he cares for. He does not use an AD in the home or in the community and has no steps at home. He reports today is a bad day regarding his balance and he usually doesn't leave the house if he's feeling more wobbly. He states his goal for therapy is to be able to stand better and get around better. Reported Pain Level Pain Score 4: Self Report Assessment PT Clinical Summary Mr. Angeles is a 64 yo male presenting to skilled PT for imbalance, frequent falls and difficulty walking. He demonstrates hip mm weakness, is high fall risk per Tinetti, 5xSTS, and TUG, and also demonstrates gait deviations such as shortened step length and forward flexed posture. He experiences difficulty ambulating due to feeling unsteady on his feet and experiences frequent losses of balance and falls in his home. He will benefit from skilled PT intervention to address deficits to improve safety and functional independence. Plan of Care Interventions Electrical Stimulation,Gait Training,Hot Pack/Cold Pack,Manual Therapy,Neuro Re-education,Patient/ Caregiver Education,Therapeutic Activities, Therapeutic Exercise,Self-Care/Home Management PT Services Indicated Yes Treatment Frequency and 2x/week for 8 visits Duration These treatments will address the objective and functional deficits as defined above. The patient will be advanced safely and appropriately in order for the patient to progress towards his/her prior level of function. Additional exercises will be introduced and as well as a comprehensive home exercise program upon discharge, if needed, ?to ensure carryover of functional gains achieved in the clinic. This treatment plan has been reviewed and agreement upon by the patient.
--- NOTE | 2024-12-13 16:37 | OPREHPOC ---
Outpatient Therapy Plan of Care This is a Multidisciplinary Plan of Care that may contain components documented by all disciplines (PT, OT, and ST.) PT Problem 1 PT Problem #1 Knowledge Deficit PT Goal 1 Goal / Goal Update Independent and compliant with HEP. Target Visit 2 Progress Met PT Problem 2 PT Problem #2 Impaired Strength PT Goal 1 Goal / Goal Update Pt to improve bilat hip strength to 5/5. Target Visit 8 Progress Not Met PT Problem 3 PT Problem #3 Impaired Balance PT Goal 1 Goal / Goal Update Pt to improve TUG to 10 secs or less. -nearly met Pt to improve 5xSTS to 12 secs or less. -not met Pt to improve Tinetti to moderate fall risk. -met Target Visit 8 Progress Partially Met PT Problem 4 PT Problem #4 Impaired Gait PT Goal 1 Goal / Goal Update Pt to demonstrate improved posture and stride length with ambulation. -met Pt to report feeling more confident when ambulating around his home. -met Pt to report no falls in the last 4 weeks. -met Target Visit 8 Progress Met
--- NOTE | 2024-12-13 16:37 | PTOPDC ---
Assessment and note entered by Lisette Thurston, PT Evaluation Information Assessment Status Discharge ICD-10 Condition Codes (PT) Repeated falls R29.6,Difficulty Walking R26.2, Weakness R53.1 Other ICD-10 Condition Codes ( R26.89 PT) Onset 11/10/2024 Subjective Information Barry reports feeling like his balance has improved since starting therapy. He feels a lot more comfortable walking around his home and community and reports he only feels unsteady if he doesn't pay attention to where he's going or his environment. He has a cane that he uses when he has to walk long distances. He feels well enough to be done with therapy today, but he does report vertigo-like symptoms. States he gets very dizzy and the room spins when he lies down to the L. He states he has had vertigo before but not this severe. Reported Pain Level Pain Score 2: Self Report Assessment PT Clinical Summary Mr. Angeles has attended 8 skilled PT visits addressing gait and balance. While he has not met his goals for TUG, 5xSTS time or hip strength, he has improved his overall balance as evidenced by Tinetti and he also notes improved confidence and comfort with navigating his home and community. He feels well enough to continue working on his strength and balance on his own and he will be discharged from skilled PT this date. Pt has also been having complaints of vertigo and tested positive for L posterior canalithiasis this date with one Christen performed. Educated pt on following up with his MD should his vertigo persist and/or worsen as well as his balance with recommendation for referral back to PT to improve dizziness. Plan of Care PT Services Indicated No
== END 2024-12-13 20:00 | disposition home or self-care (01) ==
LOC: CHSPT 14:45
PROVIDERS: Visit Provider Family Medicine
DX: R26.89 Other abnormalities of gait and mobility (principal); R26.2 Difficulty in walking, not elsewhere classified; R53.1 Weakness
CPT/HCPCS: 97110; 97112; 97161; 97530